=== PATIENT | male | born 1940 | race Caucasian/White ===

== ENCOUNTER 2016-08-11 12:47 | Day surgery (SDC) | payer MEDICARE ==
[~2016-08-11] VITALS: Ht 177.8 cm; Wt 86.2 kg
[~2016-08-11 12:47] MED LIST: ASPI-973 PO; BICA50TA PO; CeFAZolin 2 Gm/50 mL D5W Duplex Bag IV ONE; CeFAZolin 2 Gm/50 mL D5W IV Premix IV ONE; INSU100C8 SUBQ; INSU100V7 SUBQ; LISI10TA PO; LOVA40TA PO; Lactated Ringer's 1,000 ML IV SCH; METF500T4 PO; TAMS0.4C98 PO; vitamin d3 PO
[2016-08-11 13:15] VITALS: BP 143/65; PULSE 71; RESP 16; O2SAT 97
[2016-12-11] MEDS ORDERED: ONDA-54 PO (11:06)
[2016-12-11] MEDS ORDERED: PROM12.510 PO (11:06)
== END 2016-08-11 23:59 | disposition home or self-care (01) ==
LOC: SAS 12:47
PROVIDERS: ATTEND Urology
DX: R89.6 Abnormal cytological findings in specimens from other organs, systems and tissues (principal); Z53.8 Procedure and treatment not carried out for other reasons

== ENCOUNTER 2016-08-18 14:48 | Day surgery (SDC) | payer MEDICARE ==
[~2016-08-18] VITALS: Ht 177.8 cm; Wt 87.6 kg
[2016-08-18] VITALS (9 sets, daily range): BP systolic 114–166; BP diastolic 63–79; PULSE 68–82; RESP 10–21; O2SAT 96–98
[~2016-08-18 14:48] MED LIST changes: -CeFAZolin 2 Gm/50 mL D5W Duplex Bag IV ONE; -Lactated Ringer's 1,000 ML IV SCH; -TAMS0.4C98 PO
[2016-08-18] MEDS ORDERED: fentaNYL-PF 50 mCg/mL 2 mL Inj ONE (14:49)
[2016-08-18] MEDS ORDERED: Propofol 10,000 mCg/mL 20 mL Inj ONE (14:49)
[2016-08-18] MEDS ORDERED: CeFAZolin 2 Gm/50 mL D5W Duplex Bag IV ONE (15:08)
[2016-08-18] MEDS ORDERED: Insulin LISPRO 300 Unit/3 mL Inj ONE (15:30)
[2016-08-18] MEDS ORDERED: Insulin Human REGular-Omnicell 100 Unit/mL ONE (15:31)
[2016-08-18] MEDS: Lactated Ringer's 1,000 ML IV SCH ×2 (15:42→15:57)
--- NOTE | 2016-08-18 15:48 | PCM.HPANE ---
Patient Data Date of Service: Aug 18, 2016 Surgeon Admitting Provider: Attending Provider:Alma Overton MD Primary Care Physician:Susanna Iyer MD Other Provider:Peg Madrid Anesthesia Reason for Visit Abnormal Cytology Ht/WT & BMI Height (Feet): 5 Height (Inches): 10.00 Weight (Kilograms): 87.630 Body Mass Index 27.00 Allergies Coded Allergies: No Known Allergies (Verified , 08/11/16) Past Anesthesia History Anesthesia History: Denies:: Anesthesia Reactions Diabetes History Hx Diabetes?: No Type of Diabetes: Type II Glycemic Control: Insulin & Oral Medication MRSA MRSA: No Medications Blood Thinner: Aspirin Hypertension Medication: Yes Home Meds Incl Beta Gustavo: No Reported Medications [vitamin d3] No Conflict CheckUnknown Dose DAILY 08/10/16 Insulin Aspart (NovoLOG U100 Insulin Vial)100 U/Ml U1 Unit SUBQ per sliding scale PRN blood glucose #1 VIAL Ref 0 08/10/16 Metformin 500 Mg Tablet1,000 Mg PO BID Ref 0 08/10/16 Lovastatin 40 Mg Oksxke68 Mg PO HS #30 TABLET Ref 0 08/10/16 Lisinopril 10 Mg Qhptoi11 Mg PO DAILY 30 Days Ref 0 08/10/16 Insulin Glargine (Lantus U100 Insulin Vial)100 Unit/Ml Vial1 Unit SUBQ QPM #1 VIAL Ref 0 dose per MD instructions 08/10/16 Bicalutamide 50 Mg Rezdou16 Mg PO DAILY #30 TABLET 08/10/16 Aspirin 81 Mg Widfar07 Mg PO DAILY Ref 0 08/10/16 Discontinued Reported Medications Tamsulosin (Flomax)0.4 Mg Capsule0.4 Mg PO DAILY Ref 0 08/10/16 History History of ENT Problems?: No HEENT History: Denies:: Hearing Problem Hx of Heart Problems?: Yes Cardiovascular History: Positive for:: Hypertension Denies:: AICD Heart Murmur Irregular Heartbeat Pacemaker Hx of Respiratory Problem?: No Respiratory History: Denies:: Asthma COPD Oxygen Administration Pneumonia Tuberculosis Use of C-PAP Machine Hx Neurologic Problems?: No Neurological History: Denies:: CVA Multiple Sclerosis Parkinson's Disease Seizures Hx of GI Problems?: Yes Other GI Pertinent History: hx of colectomy Hx of Problems?: Yes Genitourinary History: Denies:: Kidney Stones Other Pertinent History: abnormal cytology current admission problem Male Hx: Positive for:: Prostate Problems (hx of Ca prostate, brachytherapy) Hx Musculoskeletal Problems?: No Musculoskeletal History: Denies:: Back Injury Joint Replacement Osteoarthritis Hx of Psycho/Social Problems?: No Hx Surgeries?: Yes (partial colectomy) Hx Any Other Health Problems?: Yes Other History: Positive for:: Cancer (rectal, bladder) Denies:: Thyroid Disease History Blood Transfusions: Denies:: Blood Transfusions Hx Diabetes: No Hx Alcohol Use: No Smoking Status: Former Smoker Have You Smoked inLast 12 mo: No Stop/Bang P-Blood Pressure: treated: Yes B- Body Mass Index > 35 kg/m2: No A- Age over 50: Yes N- Neck Large Circumference: No G- Gender Male: Yes ROBERT Risk Assessment: Low Risk, <3 Yes Risk Assessment Category Category 1A: Patient has history of documented sleep apnea, and HAS NOT received any narcotic, sedative or anesthesia administration during this stay. Category 1B: Patient has history of documented sleep apnea, and HAS received any narcotic , sedative or anesthesia administration during this stay Category 2: Patient has SUSPECTED Obstructive Sleep Apnea, and HAS received any narcotic , sedative or anesthesia administration during this stay. Category 3: Patient has SUSPECTED Obstructive Sleep Apnea and HAS NOT received narcotic, sedative or anesthesia administration during this stay. Category 4: Outpatient in Procedural Areas with known sleep apnea or who screen positive for High Risk via the STOP/BANG questionnaire. Exam Exam General Appearance: Alert, Oriented X3, Cooperative, No Acute Distress HEENT/AIRWAY: MP 2 Lungs: Clear to Auscultation, Normal Air Movement Heart: Exam Unremarkable, Regular Rate/Rhythm, No Murmurs/Rubs/Gallops Meds/Labs/Diagnostics Admission Meds Current Medications Lactated Ringer's (Lr) 1,000 ml @ 120 mls/hr Q8H20M IV Last administered on 15:42; Start 08/18/16 at 05:00; Stop 08/18/16 at 13:19; Status DC Insulin Human Regular (HUMulin-R Insulin U-100 Inj) 6 unit STK-MED ONCE .ROUTE Last administered on 08/18/16 15:35; Start 08/18/16 at 15:31; Stop 08/18/16 at 15:32; Status DC Plan Impression Patient chart reviewed, patient interviewed and anesthestic plan with risks, benefits, and alternatives discussed, and informed consent obtained. NPO Status: 0630 08/11/16 ASA Physical Status: ASA3 Severe Disease Anesthetic Plan: GA Bene/Risks/Altern/Consents: Yes HP Complete Prior to Induction: Yes Srikanth Pacheco MD Aug 18, 2016 15:48
[2016-08-18] MEDS ORDERED: Lactated Ringer's 1,000 ML IV SCH (16:34)
[2016-08-18] MEDS ORDERED: Lactated Ringer's 500 ML IV PRN (16:34)
[2016-08-18] MEDS ORDERED: hydrALAZINE 20 mg/mL Inj IVPUSH PRN (16:35)
[2016-08-18] MEDS ORDERED: Dexamethasone 4 mg/mL Inj IVPUSH PRN (16:35)
[2016-08-18] MEDS ORDERED: HYDROmorphone 1 mg/mL Inj IVPUSH PRN (16:35)
[2016-08-18] MEDS ORDERED: Phenylephrine 10,000 mCg/mL Inj IVPUSH PRN (16:35)
[2016-08-18] MEDS ORDERED: MetoCLOpramide 5 mg/mL 2 mL Inj IVPUSH PRN (16:35)
[2016-08-18] MEDS ORDERED: Atropine 0.4 mg/mL Inj IVPUSH PRN (16:35)
[2016-08-18] MEDS ORDERED: Ondansetron 2 mg/mL 2 mL Inj IVPUSH PRN (16:35)
[2016-08-18] MEDS ORDERED: fentaNYL-PF 50 mCg/mL 2 mL Inj IVPUSH PRN (16:35)
[2016-08-18] MEDS ORDERED: Labetalol 5 mg/mL 4 mL Inj IV PRN (16:35)
[2016-08-18] MEDS ORDERED: EPHEDrine Sulfate 50 mg/mL Inj IVPUSH PRN (16:35)
--- NOTE | 2016-08-18 16:44 | PCM.ANEP1 ---
Post Anesthesia Phase 1 PACU Phase 1 Assessment Date of Service: Aug 18, 2016 Vital Signs 36.4 128/79 68 9 98% FM Anesthetic Administered: GA Level of Alertness: Sleeping, hard to arouse PERALTA's with Equal Strength: Yes Pain: No Nausea or Vomiting: No Airway Device: Nasal Airway Oxygen Delivery: Simple Mask Lungs: Clear to Auscultation, Normal Air Movement Srikanth Pacheco MD Aug 18, 2016 16:44
[2016-08-18] MEDS ORDERED: HYDROcodone-APAP 5-325 mg Tablet PO PRN (16:50)
--- NOTE | 2016-08-18 17:41 | PCM.ANEP2 ---
Post Anesthesia Evaluation ASA/CMS Post Anesthesia Date of Service: Aug 18, 2016 VS in Patient's Normal Range?: Yes Resp Stable; Airway Patent?: Yes CV Function & Hydration Stable: Yes Mental Status Recovered?: Yes Pain control Satisfactory?: Yes N/V Control Satisfactory?: Yes Srikanth Pacheco MD Aug 18, 2016 17:41
--- NOTE | 2016-08-19 04:35 | OP ---
[address] [address] OPERATIVE REPORT PATIENT: EDDIE MENENDEZ : 1940 MR#: [id number] ADMIT: 08/18/2016 JOB ID: [id number] CORRECTED REPORT DATE OF SURGERY: 08/18/2016 PREOPERATIVE DIAGNOSIS(ES): Abnormal urine cytology. POSTOPERATIVE DIAGNOSIS(ES): Bladder tumor. PROCEDURE PERFORMED: 1. Rectal exam under anesthesia. 2. Cystoscopy and transurethral resection of bladder tumor (2.5 cm) SURGEON: Alma Overton MD. CANDY COUNTER CLERK: None. FINDINGS: 1. Extremely trabeculated bladder. 2. Low lying carpet of tumor that appeared papillary at the posterior base, approximately 2.5 cm, with a small nodule adjacent to it on the right aspect of the tumor. 3. No palpable abnormal masses on pelvic exam. Mobile bladder. ANESTHESIA: General. ESTIMATED BLOOD LOSS: Less than 5 mL. DRAINS: None. SPECIMENS: Bladder tumor. COMPLICATIONS: None. CONDITION: Stable. INDICATION FOR PROCEDURE: The patient is a 75-year-old gentleman who was found to have abnormal urine cytology on cystoscopy. He now presents for potential bladder biopsy versus transurethral resection of bladder tumor. DESCRIPTION OF PROCEDURE: After informed consent was obtained, the patient was taken to the operating room. A time-out was performed identifying correct patient, surgical site, and procedure. General anesthesia was smoothly induced. He was placed in the lithotomy position and all pressure points were identified and appropriately padded. His genitals were then prepped and draped in the usual sterile fashion. A 22-Swazi cystoscope was gently manipulated into the urethral meatus. His penis and urethra are somewhat small. Gentle manipulation and navigation through the urethra yielded entry into the bladder. The bladder was drained. The bladder was systematically inspected with both 30 and 70 degree lenses. The findings were aforementioned. The bladder was extremely trabeculated. Given the small size of his urethra and severe trabeculation of the bladder and high risk of perforation, the tumor was resected in piecemeal fashion with cold cup biopsy forceps. The cold cup biopsy forceps was used to take also deep specimens of the tumor. A nodule was seen adjacent to the tumor and this was resected completely through repeated use of the cold cup biopsy forceps. Bugbee electrocautery was used to fulgurate the base and surrounding normal mucosa. The patient's bladder was drained and re-evaluated. Hemostasis was excellent. Bimanual pelvic exam was performed. There was no abnormal masses. The bladder was mobile. The patient is then reversed from general anesthesia and taken to PACU in good stable condition. Corrected by MARY JO 11/02/16 9:16 am luh SAEZ
--- NOTE | 2016-08-23 15:03 | PATH ---
SURGICAL PATHOLOGY Attending Physician:Alma Overton, CASE STATUS: Signed Out PATIENT NAME: EDDIE MENENDEZ PID: [id number] : 1940 DATE COLLECTED:08/18/2016 23:47 SPECIMEN: Bladder, Biopsy CLINICAL HISTORY: ATYPICAL CYTOLOGY 1). 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 UNDIFFERENTIATED TUMOR DIFFUSELY INFILTRATES THE BIOPSY FRAGMENTS WHICH APPEARS TO INCLUDE SOME MUSCULARIS PROPRIA. DEFINITE INVASION BY THE UROTHELIAL COMPONENT IS NOT NOTED. FLAT UROTHELIAL CARCINOMA IN SITU PRESENT. ICD10 CODE C67.9 NOTE: As part of a routine food quality tester, Dr. Parth Sharp has also reviewed this case and agrees with the diagnosis. GROSS DESCRIPTION: The specimen is received in one formalin filled container labeled with the patient's name, sublabeled "bladder tumor" and consists of multiple portions of tissue which aggregate to 1.1 x 1.1 x 0.4 CM. The specimen is entirely submitted in one cassette. 08/19/2016 DAC MICRO DESCRIPTION: Sections are of a biopsy of urinary bladder. The urothelium shows in situ urothelial carcinoma and there are also fragments of papillary urothelial carcinoma which appears to be of high nuclear grade. There are also fragments present, however, which are diffusely infiltrated by a very cellular poorly-differentiated component to this tumor. These tumor cells are of intermediate size with irregular hyperchromatic nuclei, indistinct nucleoli, frequent mitoses, and multiple areas of cellular necrosis. Immunohistochemistry is performed in an attempt to better delineate the origin of this cellular population. Immunohistochemistry results: Synaptophysin: Poorly-differentiated tumor cells strongly positive, urothelial cells negative CD45: Negative CK20: Negative Aubrie-3: Urothelial cell tumor positive, whereas the undifferentiated component is negative MIRELLA: Both the urothelial component and the undifferentiated component tumor cells are positive Cytokeratin 7: Urothelial cell component strongly positive, whereas undifferentiated tumor cells are focally positive Interpretation: This immunophenotype suggests that this bladder tumor is of mixed cell origin. There is high-grade urothelial carcinoma and there is also a totally undifferentiated neuroendocrine-type carcinoma component to the tumor. This combination strongly suggests that the neoplasm is primary at this site. This test was developed and its performance characteristics determined by [employer]. It has not been cleared or approved by the [place]. Food and Drug Administration. The FDA has determined that such clearance or approval is not necessary. This test is used for clinical purposes. It should not be regarded as investigational or for research. ICD-9 CODES: CPT CODES: 1: 86085, 20865, 42577, 12526, 31936, 70535, 54656, 65786 PROCEDURE/ADDENDA: Addendum SPI Addendum Diagnosis {Not Entered} Addendum Comment At the request of Dr. Alma Overton, this addendum is issued at this time in order to clarify the diagnosis. There are two components to this neoplasm as was originally described in the diagnosis. The identifiable urothelial carcinoma component shows no evidence of invasion, whereas the neuroendocrine undifferentiated carcinoma is diffusely infiltrating the biopsy material which includes portions of the muscularis propria. Therefore, it should be concluded that the neuroendocrine carcinoma is indeed infiltrating the muscularis propria. The diagnoses remain unchanged. Electronically Signed Out Leo Bingham MD Addendum SPI Addendum Diagnosis {Not Entered} Addendum Comment At the request of Dr. Janes Arora, immunohistochemistry for PSA is performed on this material. The tumor cells are totally negative for PSA. This addendum report is issued at this time in order to document these results. These results are telephoned to Dr. Janes Arora at 12:05 p.m. on 09/13/16. This test was developed and its performance characteristics determined by [facility] It has not been cleared or approved by the [place]. Food and Drug Administration. The FDA has determined that such clearance or approval is not necessary. This test is used for clinical purposes. It should not be regarded as investigational or for research. Electronically Signed Out Leo Bingham MD Electronically Signed Out Leo Bingham MD [facility] Pathology [facility] [address], [place] [address] Technical component performed at [facility], [facility] [address], [address]
[2016-12-11] MEDS ORDERED: ONDA-54 PO (11:06)
[2016-12-11] MEDS ORDERED: PROM12.510 PO (11:06)
== END 2016-08-18 23:59 | disposition home or self-care (01) ==
LOC: SAS 14:48
PROVIDERS: ATTEND Urology
DX: C67.9 Malignant neoplasm of bladder, unspecified (principal); E11.9 Type 2 diabetes mellitus without complications; I10 Essential (primary) hypertension; Z85.46 Personal history of malignant neoplasm of prostate; Z87.891 Personal history of nicotine dependence; Z79.82 Long term (current) use of aspirin; Z79.899 Other long term (current) drug therapy; Z79.4 Long term (current) use of insulin
CPT/HCPCS: 52235; J0690; J1815; J7120